=== PATIENT | female | born 1980 | race Caucasian/White ===

== ENCOUNTER 2021-03-01 23:01 | Emergency (ER) | payer OTHER ==
[~2021-03-01 23:01] MED LIST: IBUPROFEN600 MG PO; NORCO 5-325 TA1 EACH PO
== END 2021-03-02 03:03 | disposition home or self-care (01) ==
LOC: ER1 23:01
DX: S01.01XA Laceration without foreign body of scalp, initial encounter (principal); T15.81XA Foreign body in other and multiple parts of external eye, right eye, initial encounter; Z88.6 Allergy status to analgesic agent; F17.210 Nicotine dependence, cigarettes, uncomplicated; Z79.899 Other long term (current) drug therapy; W33.01XA Accidental discharge of shotgun, initial encounter
CPT/HCPCS: 70450; 70480; 84702; 99284

== ENCOUNTER 2021-11-13 16:16 | Inpatient (IN) | payer OTHER ==
[2021-11-13 17:11] LABS: HEMOGLOBIN 11.8 gm/dl (12.3-15.3); RED BLOOD COUNT 3.92 M/UL (4.00-5.10)
[2021-11-14] MEDS ORDERED: COLACE100 MG PO (13:01)
[2021-11-14] MEDS ORDERED: IBUPROFEN800 MG PO (13:01)
[2021-11-15 04:13] LABS: HEMOGLOBIN 10.5 gm/dl (12.3-15.3)
== END 2021-11-16 10:15 | disposition home or self-care (01) | DRG 807 ==
LOC: GENOP 16:16 → OB 16:46
PROVIDERS: Obstetrics & Gynecology; ADMIT Obstetrics & Gynecology
PROC: 4A1HXCZ Monitoring of Products of Conception, Cardiac Rate, External Approach (ICD-10-PCS; 2021-11-13)
PROC: 10E0XZZ Delivery of Products of Conception, External Approach (ICD-10-PCS; principal; 2021-11-14)
PROC: 10907ZC Drainage of Amniotic Fluid, Therapeutic from Products of Conception, Via Natural or Artificial Opening (ICD-10-PCS; 2021-11-14)
DX: O99.324 Drug use complicating childbirth (principal); Z37.0 Single live birth; Z20.822 Contact with and (suspected) exposure to COVID-19; Z3A.39 39 weeks gestation of pregnancy; B19.20 Unspecified viral hepatitis C without hepatic coma; F11.10 Opioid abuse, uncomplicated; O99.334 Smoking (tobacco) complicating childbirth; F17.210 Nicotine dependence, cigarettes, uncomplicated; Z88.6 Allergy status to analgesic agent
CPT/HCPCS: 36415; 80307; 81001; 85014; 85018; 85025; G0378; J0595; J2210; J2405; J2590; J7120; U0002

== ENCOUNTER 2022-04-29 12:53 | Emergency (ER) | payer OTHER ==
[~2022-04-29 12:53] MED LIST changes: +COLACE100 MG PO; +IBUPROFEN800 MG PO
[2022-04-29 14:54] LABS: HEMOGLOBIN 13.1 gm/dl (12.3-15.3); RED BLOOD COUNT 4.35 M/UL (4.00-5.10); WHITE BLOOD COUNT 6.8 K/UL (4.5-11.0)
[2022-04-29 15:19] LABS: BUN/CREATININE RATIO 7 (0-10)
[2022-04-29] MEDS ORDERED: CEFUROXIME500 MG PO (18:38)
[2022-04-29] MEDS ORDERED: BENZONATATE200 MG PO (18:41)
== END 2022-04-29 19:19 | disposition home or self-care (01) ==
LOC: ER1 12:53
PROVIDERS: Preventive Medicine Occupational Medicine
DX: R09.1 Pleurisy (principal); N39.0 Urinary tract infection, site not specified; R05.9 Cough, unspecified; Z20.822 Contact with and (suspected) exposure to COVID-19; F17.210 Nicotine dependence, cigarettes, uncomplicated
CPT/HCPCS: 0240U; 71046; 80053; 81001; 82550; 82553; 83690; 83880; 84484; 85025; 85379; 85652; 86140; 87077; 87086; 87186; 93005; 99285; Q9967